=== PATIENT | male | born 1985 | race Caucasian/White ===

== ENCOUNTER 2024-09-22 18:50 | Emergency (ER) | payer BC, SELFPAY ==
[2024-09-22] MEDS ORDERED: NA CHLORIDE 0.9% 1,000 ML ONE (19:07)
[2024-09-22 20:05] LABS: Absolute Lymphocytes (CBC) 0.3 K/uL (0.7-4.9); Absolute Monocytes 1.1 K/uL (0.1-1.3); Absolute Neutrophil 15.8 K/uL (1.8-8.0); Basophils % 0.2 % (0-1.3); Eosinophils % 0.1 % (0-4.4); Hematocrit 38.6 % (39.6-49.0); Hemoglobin 12.8 g/dL (13.6-17.9); Lymphocytes % 1.7 % (15.3-44.8); MCH 28.4 pg (27.0-35.0); MCHC 33.2 g/dL (32.0-36.0); MCV 85.6 fL (80-100); MPV 9.3 fL (7.6-11.3); Monocytes % 6.4 % (3.3-12.3); Neutrophils % 91.6 % (41.7-73.7); Platelets 227 thou/uL (152-406); RBC Red Blood Cell Count 4.51 M/uL (4.33-5.43); Red Cell Distribution Width 13.8 % (12.1-15.2)
[2024-09-22 20:12] LABS: ALT/SGPT 18 U/L (16-61); AST/SGOT 13 U/L (15-37); Albumin 3.4 g/dL (3.4-5.0); Albumin/Globulin Ratio 1.2 (1.1-1.8); Alkaline Phosphatase 172 U/L (45-117); BUN Blood Urea Nitrogen 9 mg/dL (7-18); Bicarbonate 19 mEq/L (21-32); Bilirubin Total 0.3 mg/dL (0.2-1.0); Globulin 2.8 g/dL (2.3-3.5); Glomerular Filtration Rate 111 ml/min (=/>90); Glucose Level 63 mg/dL (74-106); PT Prothrombin Time 13.3 SECONDS (9.4-12.5); PTT, Activated Partial Thromb 21.8 SECONDS (24.3-36.9); Protein, Total 6.2 g/dL (6.4-8.2); Protime INR 1.19; Sodium Level 142 mEq/L (136-145)
[2024-09-22 20:14] LABS: Bilirubin Direct < 0.2 mg/dL (0-0.2); Bilirubin Indirect, Calculated 0.1 mg/dL (0.2-0.8)
[2024-09-22 21:02] LABS: Barbiturates NEGATIVE (NEGATIVE); Benzodiazepines POSITIVE (NEGATIVE); Cocaine NEGATIVE (NEGATIVE); METHAMPHETAM POSITIVE (NEGATIVE); Methadone NEGATIVE (NEGATIVE); Opiates NEGATIVE (NEGATIVE); Phencyclidine NEGATIVE (NEGATIVE); THC Cannibis POSITIVE (NEGATIVE)
[2024-09-22 21:13] LABS: Blood Morphology Comment NOT SEEN (NOT SEEN); Platelet Estimate ADEQ; White Blood Cell Scan OK (OK)
[2024-09-22] MEDS ORDERED: KETOROLAC 30 MG/ML INJ ONE (21:32)
--- NOTE | 2024-09-22 21:35 | ER ---
Nurse's Notes [facility] Name: Steve Estes Age: 39 yrs Sex: Male : 1985 Arrival Date: 09/22/2024 Time: 18:50 Bed 4 Private MD: Diagnosis: Drug abuse counseling and surveillance of drug abuser Presentation: 09/22 18:52 Chief complaint: EMS states: Called for a behavioral assist due to patient being tazed cm10 X2. Upon EMS arrival, pt became combative and fighting. Pt received Versed 5 mg IM prior to arrival. Pt in [employer] custody upon arrival. Pt believed to be under the influence of Methamphetamine per EMS report. Coronavirus screen: Client denies travel out of the [place] in the last 14 days. Ebola Screen: Patient denies travel to an Ebola-affected area in the 21 days before illness onset. Initial Sepsis Screen: Does the patient meet any 2 criteria? HR > 90 bpm. No. Patient's initial sepsis screen is negative. Does the patient have a suspected source of infection? No. Patient's initial sepsis screen is negative. Risk Assessment: Do you want to hurt yourself or someone else? Unable to obtain. Onset of symptoms was September 22, 2024. Care prior to arrival: Medication(s) given: Normal saline infusion, 700mL Versed 5mg IM IV initiated. 18 GA, in the right forearm, Glucose check: 262. 18:52 Method Of Arrival: EMS: [facility] cm10 18:52 Acuity: DOROTHY 3 cm10 Triage Assessment: 19:00 General: Appears unkempt, Behavior is drowsy. Pain: Unable to use pain scale. Patient cm10 appears quiet. EENT: Poor dentition noted. Neuro: [place]ima Agitation-Sedation Scale (RASS): -1 Drowsy Level of Consciousness is lethargic. Cardiovascular: No deficits noted. Patient's skin is warm and dry. Rhythm is sinus tachycardia. Respiratory: No deficits noted. Airway is patent Respiratory effort is even, unlabored, Respiratory pattern is regular, symmetrical. Derm: Wound noted anterior aspect of left shoulder Wound is abrasion. Historical: - Allergies: 18:58 Unable to obtain; cm10 - Home Meds: 18:58 Unable to obtain [Active]; cm10 - PMHx: 18:58 Unable to Obtain; cm10 - PSHx: 18:58 Unable to Obtain; cm10 - Immunization history:: Adult Immunizations unknown. - Infectious Disease History:: Denies. - Social history:: Smoking status: unknown Patient uses street drugs, Methamphetamine (Meth). Screenin:00 [facility] ED Fall Risk Assessment (Adult) History of falling in the last 3 months, cm10 including since admission Yes- single mechanical fall (1 pt) Confusion or Disorientation Yes (5 pts) Intoxicated or Sedated Yes (3 pts) Impaired Gait No (0 pts) Mobility Assist Device Used No (0 pt) Altered Elimination No (0 pt) Score/Fall Risk Level 3 or more points = High Risk Oriented to surroundings, Maintained a safe environment, Hourly rounding (assess needs \T\ fall precautionary measures) done. Abuse screen: Denies threats or abuse. Denies injuries from another. Nutritional screening: No deficits noted. Tuberculosis screening: No symptoms or risk factors identified. Assessment: 20:27 Reassessment: Patient and/or family updated on plan of care and expected duration. Pain cm10 level reassessed. Patient is alert, oriented x 3, equal unlabored respirations, skin warm/dry/pink. Patient states symptoms have improved. General: Appears in no apparent distress. comfortable, Behavior is calm, cooperative. Neuro: No deficits noted. Level of Consciousness is awake, alert, obeys commands, Oriented to person, place, time, situation, Appropriate for age. Respiratory: No deficits noted. Airway is patent Respiratory effort is even, unlabored, Respiratory pattern is regular, symmetrical. 21:36 Reassessment: Patient appears in no apparent distress at this time. Patient and/or cm10 family updated on plan of care and expected duration. Pain level reassessed. Patient is alert, oriented x 3, equal unlabored respirations, skin warm/dry/pink. Vital Signs: 18:52 BP 111 / 68; Pulse 116; Resp 15; Temp 96.1(A); Pulse Ox 98% ; Weight 53.98 kg (M); cm10 20:00 BP 123 / 90; Pulse 102; Resp 19; Pulse Ox 98% on R/A; cm10 20:25 BP 139 / 87; Pulse 132; Resp 19; Pulse Ox 99% on R/A; cm10 21:17 Pulse 124; Resp 18; Pulse Ox 99% ; cm10 21:34 BP 136 / 98; Pulse 116; Pulse Ox 100% ; cm10 ED Course: 18:52 Patient arrived in ED. cm10 18:57 Triage completed. cm10 18:58 Arm band placed on right wrist. Patient placed in an exam room, on a stretcher, on cm10 plant assigner, on pulse oximetry. 18:59 Jessica Matamoros, RN is Primary Nurse. cm10 19:00 Patient has correct armband on for positive identification. Bed in low position. Call cm10 light in reach. Side rails up X2. [employer] at bedside. Client placed on continuous cardiac and pulse oximetry monitoring. NIBP monitoring applied. hazardous substances engineer on. 19:01 Caitlyn Coppola PA-C is PHCP. sb4 19:01 Elina Maher MD is Attending Physician. sb4 19:14 Maintain EMS IV. Dressing intact. Good blood return noted. Site clean \T\ dry. Gauge \T\ cm 10 site: 18g right forearm. Flushed with 10 mL NS. 19:50 Acetaminophen Sent. cm10 19:50 Basic Metabolic Panel Sent. cm10 19:50 CBC with Diff Sent. cm10 19:50 ETOH Level Sent. cm10 19:51 Hepatic Function Sent. cm10 19:51 PT-INR Sent. cm10 19:51 Ptt, Activated Sent. cm10 19:51 Salicylate Sent. cm10 19:51 Initial lab(s) drawn, by tn, sent to lab. cm10 20:56 PHCP role handed off by Caitlyn Coppola PA-C dr5 20:56 Shay Lester FNP-C is PHCP. dr5 21:58 Provided Education on: Follow-up instructions. cm10 21:58 No provider procedures requiring assistance completed. IV discontinued, intact, cm10 bleeding controlled, No redness/swelling at site. Pressure dressing applied. Administered Medications: 19:14 Drug: NS 0.9% IV 1000 ml IV at 1 bolus Per protocol; to be given as a bolus over 60 cm10 minutes Route: IV; Rate: 1 bolus; Site: right forearm; 20:00 Follow up: Response: No adverse reaction; IV Status: Completed infusion; IV Intake: cm10 1000ml 21:35 Drug: Ketorolac IVP 30 mg IVP once Route: IVP; Site: right forearm; cm10 21:58 Follow up: Response: No adverse reaction cm10 Medication: 21:58 VIS not applicable for this client. cm10 Intake: 20:00 IV: 1000ml; Total: 1000ml. cm10 Output: 20:27 Urine: 900ml (Voided); Total: 900ml. cm10 Outcome: 21:34 Discharge ordered by MD. cheek 21:58 Discharged to Law Enforcement cm10 21:58 Condition: good 21:58 Discharge instructions given to patient, police, Instructed on discharge instructions, follow up and referral plans. Demonstrated understanding of instructions, follow-up care, 22:01 Patient left the ED. cm10 Signatures: Caitlyn Coppola PA-C PA-C sb4 Jessica Matamoros RN RN cm10 Shay Lester FNP-C PUBLICATION DIRECTOR-Cdr5
--- NOTE | 2024-09-22 21:35 | EDPHYS ---
Physician Documentation [facility] Name: Steve Estes Age: 39 yrs Sex: Male : 1985 Arrival Date: 09/22/2024 Time: 18:50 Bed 4 Private MD: ED Physician Elina Maher HPI: 09/22 19:34 This 39 yrs old Male presents to ER via EMS with complaints of Care Home Clearance. sb4 20:20 Patient was found today breaking and entering into someone's home. PD was called. sb4 Patient was clearly intoxicated and was tased then taken into custody. Patient became very combative, EMS administered Versed. Patient is now sleeping and only responsive to painful stimuli. PD brought him here to be medically cleared for skilled nursing. Historical: - Allergies: 18:58 Unable to obtain; cm10 - Home Meds: 18:58 Unable to obtain [Active]; cm10 - PMHx: 18:58 Unable to Obtain; cm10 - PSHx: 18:58 Unable to Obtain; cm10 - Immunization history:: Adult Immunizations unknown. - Infectious Disease History:: Denies. - Social history:: Smoking status: unknown Patient uses street drugs, Methamphetamine (Meth). ROS: 20:20 Unable to obtain ROS due to obtunded state, sb4 21:36 Constitutional: as per hpi dr5 Exam: 20:20 Respiratory: No increased work of breathing, no retractions or nasal flaring. sb4 20:20 Constitutional: The patient appears alert, awake, obtunded 20:20 Head/face: Noted is a laceration(s), that is superficial, 1 cm(s), of the left upper outer eyebrow, 20:20 Cardiovascular: Rate: tachycardic, Rhythm: regular, 20:20 Skin: injury, abrasion(s), moderate sized abrasion noted, of the anterior aspect of left shoulder, Vital Signs: 18:52 BP 111 / 68; Pulse 116; Resp 15; Temp 96.1(A); Pulse Ox 98% ; Weight 53.98 kg (M); cm10 20:00 BP 123 / 90; Pulse 102; Resp 19; Pulse Ox 98% on R/A; cm10 20:25 BP 139 / 87; Pulse 132; Resp 19; Pulse Ox 99% on R/A; cm10 21:17 Pulse 124; Resp 18; Pulse Ox 99% ; cm10 21:34 BP 136 / 98; Pulse 116; Pulse Ox 100% ; cm10 MDM: 19:03 Medical Screening Exam initiated sb4 20:23 Data reviewed: vital signs, nurses notes, EMS record, lab test result(s), and as a sb4 result, I will discharge patient. Counseling: I had a detailed discussion with the patient and/or guardian regarding the historical points, exam findings, and any diagnostic results supporting the discharge/admit diagnosis, lab results, to return to the emergency department if symptoms worsen or persist or if there are any questions or concerns that arise at home. 20:32 ED course: patient now awake, alert, oriented x 3, answering questions appropriately . sb4 20:56 Transition of care: Care assumed from Caitlyn Coppola PA-C. dr5 21:36 Differential diagnosis: Drug Abuse, Electrolyte Abnormality. Care significantly dr5 affected by the following Social Determinants of Health: Poor access to healthcare and/or lack of insurance, Poor access to transportation, Problems related to employment. ED course: Patient's heart rate came down to 116 and is feeling much better. Will release patient to skilled nursing. Patient came back with positive for methamphetamine and Thc which is likely causing tachycardia. Patient was given a total of 2 L of fluid. Elevated white count likely due to methamphetamines, running from police, and being tased. ER precautions given. Patient discharged with police.. 09/22 19:21 Order name: Acetaminophen; Complete Time: 20:15 sb4 09/22 19:21 Order name: Basic Metabolic Panel; Complete Time: 20:15 sb4 09/22 19:21 Order name: CBC with Diff; Complete Time: 21:25 sb4 09/22 19:21 Order name: ETOH Level; Complete Time: 20:12 sb4 09/22 19:21 Order name: Hepatic Function; Complete Time: 20:15 sb4 09/22 19:21 Order name: PT-INR; Complete Time: 20:13 sb4 09/22 19:21 Order name: Ptt, Activated; Complete Time: 20:13 sb4 09/22 19:21 Order name: Salicylate; Complete Time: 20:32 sb4 09/22 19:21 Order name: Urine Drug Screen; Complete Time: 21:25 sb4 09/22 20:38 Order name: CBC Smear Scan; Complete Time: 21:25 EDMS 09/22 19:21 Order name: IV Saline Lock; Complete Time: 19:23 sb4 09/22 19:21 Order name: Labs collected and sent; Complete Time: 19:50 sb4 Administered Medications: 19:14 Drug: NS 0.9% IV 1000 ml IV at 1 bolus Per protocol; to be given as a bolus over 60 cm10 minutes Route: IV; Rate: 1 bolus; Site: right forearm; 20:00 Follow up: Response: No adverse reaction; IV Status: Completed infusion; IV Intake: cm10 1000ml 21:35 Drug: Ketorolac IVP 30 mg IVP once Route: IVP; Site: right forearm; cm10 21:58 Follow up: Response: No adverse reaction cm10 Disposition: 20:36 Co-signature as Attending Physician, Elina Maher MD I reviewed the patient's care gb1 provided by the Advanced Practice Provider and agree with the diagnosis and treatment plan. Disposition Summary: 09/22/24 21:34 Discharge Ordered Notes: Location: Home dr5 Condition: Stable dr5 Diagnosis - Drug abuse counseling and surveillance of drug abuser dr5 Followup: dr5 - With: Emergency Department - When: As needed - Reason: Worsening of condition Followup: dr5 - With: Private Physician - When: 1 - 2 days - Reason: Recheck today's complaints, Continuance of care, Re-evaluation by your physician Discharge Instructions: - Discharge Summary Sheet dr5 - Finding Treatment for Addiction dr5 - Methamphetamines Use Disorder dr5 - Opioid Use Disorder dr5 Forms: - Medication Reconciliation Form dr5 - Patient Portal Instructions dr5 - Leadership Thank You Letter dr5 Signatures: Dispatcher [employer] Caitlyn Wallis PA-C PA-C sb4 Jessica Matamoros, RN RN cm10 Elina Maher MD MD gb1 Shay Lester, DIETARY ASSISTANT-C DIETARY ASSISTANT-Cdr5
[2024-09-22 22:20] VITALS: TEMP 96.1
[2024-09-22 22:26] VITALS: BP 136/98; O2SAT 100
== END 2024-09-22 22:01 | disposition home or self-care (01) ==
LOC: ER 18:50
DX: R00.0 Tachycardia, unspecified (principal); R45.6 Violent behavior; F12.929 Cannabis use, unspecified with intoxication, unspecified; F15.929 Other stimulant use, unspecified with intoxication, unspecified; Z71.51 Drug abuse counseling and surveillance of drug abuser; Z04.89 Encounter for examination and observation for other specified reasons
CPT/HCPCS: 96361; 85025; 80048; 36415; 85610; 80076; 85730; 80307; 96374; 99285; 80143; 80179; 82077; J7030